=== PATIENT | female | born 1960 | race Caucasian/White ===

== ENCOUNTER → 2024-03-15 18:35 | Outpatient (CLI) | payer OTHER, SELFPAY ==
--- NOTE | 2024-03-15 18:39 | DI.MRI.S_ITS ---
PROCEDURE: MR KNEE LT WO CON INDICATIONS: LTD EXTENSION CONCERN FOR FLAP TEAR OF MENISCUS TECHNIQUE: Noncontrast sagittal PD fast spin echo and T2 fast spin echo with fat saturation, sagittal 3-D FLASH with fat saturation; coronal T1 spin echo and PD fast spin echo with fat saturation, and axial PD fast spin echo with fat saturation through the knee. COMPARISON: None. FINDINGS: Image quality: Excellent. Menisci: In the medial meniscus, there is an incomplete radial tear of the posterior horn (series 7, image 8), extending to a vertical tear of the meniscus body anteriorly. There is mild extrusion of the medial meniscus body. No meniscus flap of the medial meniscus. The lateral meniscus is unremarkable. Cruciate ligaments: The anterior and posterior cruciate ligaments appear intact. Medial structures: The medial collateral ligament appears intact. The posterior oblique ligament, semimembranosus tendon insertions, oblique popliteal ligament, and meniscocapsular junction appear intact. Visualized portions of the pes anserinus tendons appear normal. No abnormal bursal fluid. Lateral structures: The lateral collateral ligament, long and short heads of the biceps femoris tendon appear intact. The popliteus tendon appears normal; the popliteofibular ligament appears intact. The posterosuperior and anteroinferior popliteomeniscal fascicles appear intact. The arcuate and fabellofibular ligaments appear intact, on either side of the lateral inferior geniculate artery. Iliotibial band appears normal. Anterior structures: The quadriceps and patellar tendons appear intact. Patellar alignment is normal. No femoral trochlear dysplasia or ventral trochlear prominence. Medial Hoffa's fat pad edema. Bones and cartilage: In the medial compartment, there is large area of full-thickness chondral denudation in the weight-bearing portion of the femoral condyle, extending to the anterior trochlea, with marked subchondral marrow edema. There is large area of full-thickness chondral denudation in the anterior aspect of the medial tibial plateau, with associated marrow edema as well, degenerative. The cartilage of the lateral compartment is well maintained. There is additional full-thickness chondral fissuring in the medial trochlea. Cartilage of the lateral trochlea is well maintained. There is high-grade chondral thinning in the median ridge, extending to the medial patellar facet. Mild subchondral marrow edema in the median ridge and medial patellar facet. Joint space: Small knee effusion. Trace popliteal cyst. Popliteal vasculature is unremarkable. IMPRESSION: 1. Complex tear of the medial meniscus. 2. Severe, medial compartment predominant chondrosis, with marked marrow edema. Dictated by: Nithya Gallegos M.D. on 03/18/2024 at 10:04 Approved by: Nithya Gallegos M.D. on 03/18/2024 at 10:16
== END ==
PROVIDERS: Referring Provider Physician Assistant Surgical; Visit Provider Physician Assistant Surgical
DX: S83.232A Complex tear of medial meniscus, current injury, left knee, initial encounter (principal); M94.262 Chondromalacia, left knee
CPT/HCPCS: 73721

== ENCOUNTER → 2024-09-11 14:18 | Outpatient (CLI) | payer OTHER, SELFPAY ==
[2024-09-11 14:58] LABS: Add Manual Diff / Slide Review NO; Basophils Absolute Auto 0 /uL (0-100); Basophils Percent Auto 0.8 % (0-2); Eosinophils Absolute Auto 200 /uL (0-450); Eosinophils Percent Auto 3.6 % (2-4); Hematocrit 41.4 % (36-46); Hemoglobin 13.8 g/dL (12.0-16.0); Lymphocytes Absolute Auto 1900 /uL (1100-4500); Lymphocytes Percent Auto 43.4 % (25-40); Mean Corpuscular HGB Conc 33.3 % (30-36); Mean Corpuscular Hemoglobin 28.7 PG (26-34); Mean Corpuscular Volume 86.1 fL (80-100); Monocytes Absolute Auto 500 /uL (0-900); Monocytes Percent Auto 11.1 % (3-14); Neutrophils Absolute Auto 1800 /uL (1500-7000); Neutrophils Percent Auto 41.1 % (50-75); Platelet Count 337 X10^3/uL (150-400); Red Cell Distribution Width 13.8 % (11.6-14.8); White Blood Cell Count 4.3 X10^3/uL (4.5-11.0)
--- NOTE | 2024-09-11 15:05 | EKG_ITS ---
[address] [id number] [address] [address] Test Date: 2024-09-11 Pat Name: Kaila Molina Department: Room: Gender: Female [employer]: LUZ MARIA : 1960 Requested By: Order Number: [id number] Reading MD: Emanuel Martinez Measurements Intervals [place] Rate: 61 P: 49 AK: 162 QRS: -4 QRSD: 82 T: 50 QT: 404 QTc: 406 Interpretive Statements Normal sinus rhythm Electronically Signed On 09-11-2024 23:46:20 PST by Emanuel Martinez
[2024-09-11 15:35] LABS: BUN Creatinine Ratio 22.2 (6-22); Blood Urea Nitrogen 18 mg/dL (7-17); Calcium 9.7 mg/dL (8.4-10.2); Carbon Dioxide 26 mmol/L (22-32); Chloride 105 mmol/L (98-107); Estimated Glomerular Filt Rate > 60 mL/min (>60); Glucose 95 mg/dL (80-110); HEMOLYSIS < 15 (0-50); Potassium 4.2 mmol/L (3.4-5.1); Sodium 139 mmol/L (137-145)
[2024-09-11 15:51] LABS: Appearance Urine UA CLEAR; Bilirubin Urine UA NEGATIVE (NEGATIVE); Color Urine UA YELLOW; Glucose Urine UA NEGATIVE (Negative); Ketones Urine UA NEGATIVE (NEGATIVE); Leukocyte Esterase Urine UA NEGATIVE (NEGATIVE); Nitrite Urine UA NEGATIVE (Negative); Occult Blood Urine UA NEGATIVE (Negative); Protein Urine UA NEGATIVE (Negative); Specific Gravity Urine UA 1.015 (1.000-1.035); Urobilinogen Urine UA 0.2 E.U./dL (0.2)
[2024-09-11 15:55] LABS: pH Urine UA 6.5 (4.5-8.0)
[2024-09-11 16:04] LABS: Hemoglobin A1C% w Est Avg Glu 5.6 % (4.0-6.0)
[2024-09-11 16:09] LABS: Bacteria Urine None Seen; Culture Indicated Urine Cult Not Indicated; RBC Urine None Seen (0-5/HPF); Squamous Epithelial Cell Urine None Seen (0-5/HPF); Urine Volume 10mL (spun); WBC Urine 0-1/HPF (0-5/HPF)
== END ==
LOC: LAB 14:20 → RESP 15:05
PROVIDERS: PCP Registered Nurse; Referring Provider Orthopaedic Surgery; Visit Provider Orthopaedic Surgery
DX: Z01.818 Encounter for other preprocedural examination (principal); Z01.812 Encounter for preprocedural laboratory examination; R73.9 Hyperglycemia, unspecified; N39.0 Urinary tract infection, site not specified
CPT/HCPCS: 36415; 80048; 81001; 83036; 85025; 93005